=== PATIENT | female | born 1995 | race Two or more races ===

== ENCOUNTER 2018-12-01 18:23 | Emergency (ER) | payer OTHER ==
[~2018-12-01] VITALS: Ht 170.2 cm; Wt 86.2 kg
[2018-12-01] MEDS ORDERED: LITIO (18:40)
== END 2018-12-01 19:45 | disposition home or self-care (01) ==
LOC: ER 18:23
DX: S61.221A Laceration with foreign body of left index finger without damage to nail, initial encounter (principal); W26.0XXA Contact with knife, initial encounter; Y93.89 Activity, other specified; Y92.69 Other specified industrial and construction area as the place of occurrence of the external cause; Y99.8 Other external cause status